=== PATIENT | female | born 1985 | race Caucasian/White ===

== ENCOUNTER → 2023-05-05 10:19 | Outpatient (REF) | payer OTHER, SELFPAY ==
[2023-05-05 19:07] LABS: Hepatitis B Surface Antibody Positive
[2023-05-05 19:52] LABS: Rubella Positive
[2023-05-07 15:06] LABS: Quantiferon Mitogen minus NIL >10.00 IU/mL; Quantiferon NIL 0.03 IU/mL; Quantiferon TB Gold Plus Negative (Negative)
[2023-05-09 14:15] LABS: Mumps Virus IgG Positive; Rubeola (Measles) IgG Positive; Varicella Zoster IgG (VZV) Positive
== END ==
LOC: OHS 10:19
PROVIDERS: ATTENDING PHYSICIAN Nurse Practitioner Family
DX: Z23 Encounter for immunization (principal)
CPT/HCPCS: 36415; 86480; 86706; 86735; 86762; 86765; 86787